=== PATIENT | female | born 1990 | race Caucasian/White ===

== ENCOUNTER 2021-08-21 11:17 | Emergency (ER) | payer SELFPAY ==
[~2021-08-21] VITALS: Ht 165.1 cm; Wt 75.0 kg
[2021-08-21 11:28] VITALS: BP 117/72
[2021-08-21] MEDS ORDERED: HYDROCODONE/ACETAMINOPHEN 5/325MG TABLET PO ONE (12:15)
== END 2021-08-21 14:35 | disposition left against medical advice (07) ==
LOC: ER 11:17
DX: S70.02XA Contusion of left hip, initial encounter (principal); W01.0XXA Fall on same level from slipping, tripping and stumbling without subsequent striking against object, initial encounter; Y93.9 Activity, unspecified; Y92.9 Unspecified place or not applicable
CPT/HCPCS: 81025; 99282

== ENCOUNTER 2024-11-16 16:00 | Emergency (ER) | payer SELFPAY ==
[~2024-11-16] VITALS: Ht 157.5 cm; Wt 65.0 kg
[2024-11-16 16:01] VITALS: BP 163/82; PULSE 88; RESP 16; TEMP 36.6; O2SAT 98
[2024-11-16 18:14] VITALS: TEMP 97.9
[2024-11-16] MEDS: ACETAMINOPHEN 325MG TABLET PO ONE (18:14)
== END 2024-11-16 18:15 | disposition home or self-care (01) ==
LOC: ER 16:00
DX: M54.2 Cervicalgia (principal); M54.9 Dorsalgia, unspecified; V89.2XXA Person injured in unspecified motor-vehicle accident, traffic, initial encounter; Y93.89 Activity, other specified; Y92.89 Other specified places as the place of occurrence of the external cause; Y99.8 Other external cause status
CPT/HCPCS: 99283